=== PATIENT | female | born 1980 | race Caucasian/White ===

== ENCOUNTER 2020-07-19 08:27 | Inpatient (IN) ==
[2020-07-19] MEDS ORDERED: Azithromycin 500 MG in 0.9 % Sodium Chloride 250 ML IVPB ONE (09:03)
[2020-07-19] MEDS ORDERED: Naloxone 0.4 MG/ML INJ IVP PRN (09:03)
[2020-07-19] MEDS ORDERED: CeFAZolin 2,000 MG/50 ML BAG IVPB ONE (09:03)
[2020-07-19] MEDS ORDERED: Metoclopramide 10 MG/2 ML VIAL IVP PRN ×2 (09:03→13:47)
[2020-07-19] MEDS ORDERED: Famotidine 20 MG/2 ML VIAL IVP PRN (09:03)
[2020-07-19] MEDS ORDERED: EPHEDrine 50 MG/ML VIAL ONE (09:14)
[2020-07-19] MEDS ORDERED: *HR* Morphine Sulfate/PF 10 MG/10 ML AMPUL ONE (09:14)
[2020-07-19] MEDS ORDERED: *HR* FentaNYL (PF) 100 MCG/2 ML VIAL ONE (09:15)
[2020-07-19] MEDS ORDERED: Ringers Solution, Lactated 1,000 ML IVC SCH (09:15)
[2020-07-19] MEDS ORDERED: *HR* Midazolam HCl 2 MG/2 ML VIAL ONE (09:16)
[2020-07-19] MEDS ORDERED: Ondansetron 4 MG/2 ML VIAL ONE (09:16)
[2020-07-19] MEDS ORDERED: Dexamethasone 4 MG/ML VIAL ONE (09:16)
[2020-07-19] MEDS ORDERED: *HR* Oxytocin 10 UNIT/ML VIAL IM ONE (09:17)
[2020-07-19] MEDS ORDERED: Ringers Solution, Lactated 1,000 ML ONE (09:17)
[2020-07-19 09:42] LABS: Basophils % 0.2 %; Eosinophils % 0.1 %; Hematocrit 37.1 % (35.3-44.9); Hemoglobin 12.2 g/dL (11.5-15.4); Immature Granulocytes % 0.5 % (0-4); Lymphocytes # 1.2 K/mcL (0.6-4.6); Lymphocytes % 6.1 %; Mean Corpuscular HGB Conc 32.9 g/dL (31.6-35.5); Mean Corpuscular Hemoglobin 29.3 pg (28.0-33.3); Mean Platelet Volume 11.3 fL (9.4-12.4); Monocytes # 0.6 K/mcL (0.0-1.3); Monocytes % 3.1 %; Neutrophils # 17.2 K/mcL (1.6-8.9); Platelet Count 305 K/mcL (140-400); Red Blood Count 4.17 M/mcL (3.82-4.97); Red Cell Distribution Width 13.7 % (11.5-14.5); White Blood Count 19.1 K/mcL (4.3-11.1)
[2020-07-19] MEDS ORDERED: *HR* Succinylcholine 200 MG/10 ML VIAL IVP ONE (10:07)
[2020-07-19] MEDS ORDERED: *HR* FentaNYL (PF) 250 MCG/5 ML VIAL ONE (10:22)
[2020-07-19] MEDS ORDERED: Ketamine *HR* 500 MG/10 ML MDV ONE (10:25)
[2020-07-19 10:33] LABS: Rubella IgG Antibody POSITIVE (POSITIVE); Varicella Zoster IgG Antibody Positive
[2020-07-19] MEDS ORDERED: Ketorolac 30 MG/ML VIAL ONE (10:41)
[2020-07-19 11:09] LABS: Alanine Aminotransferase 20 Units/L (7-52); Aspartate Amino Transferase 20 Units/L (13-39); BUN/Creatinine Ratio 11 (6-26); Blood Urea Nitrogen 7 mg/dL (6-20); Lactate Dehydrogenase 213 Units/L (140-271); Uric Acid 5.3 mg/dL (2.3-7.6); eGFR For African Americans > 60 (> 60); eGFR For Non-African Americans > 60 (> 60)
[2020-07-19 11:10] LABS: Influenza A PCR Negative (Negative); Influenza B PCR Negative (Negative); Resp. Syncytial Virus PCR Negative (Negative)
[2020-07-19 11:15] LABS: SARS-CoV-2 by PCR (In House) Negative (Negative)
[2020-07-19 11:45] LABS: Creatinine,Urine 124 mg/dL; Protein/Creatinine Ratio,Urine 0.18 mg/mg (0.00-0.20)
[2020-07-19 11:49] LABS: Amphetamine Screen,Urine Positive ng/mL (Cutoff=1000); Barbiturate Screen,Urine Negative ng/mL (Cutoff=200); Benzodiazepines Screen,Urine Negative ng/mL (Cutoff=200); Cannabinoid Screen,Urine Negative ng/mL (Cutoff = 50); Cocaine Screen,Urine Negative ng/mL (Cutoff= 300); Opiate Screen,Urine Negative ng/mL (Cutoff=300); Phencyclidine Screen,Urine Negative ng/mL (Cutoff=25)
[2020-07-19 12:24] LABS: Hepatitis B Surface Antigen Nonreactive (Nonreactive)
[2020-07-19 12:52] LABS: HIV-1&2 Antibody & p24 Ag Nonreactive (Nonreactive)
[2020-07-19] MEDS ORDERED: Measles/Mumps/Rubella Vacc 0.5 ML VIAL SQ ONE (13:47)
[2020-07-19] MEDS ORDERED: Ondansetron 4 MG/2 ML VIAL IVP PRN (13:47)
[2020-07-19] MEDS ORDERED: Oxytocin 20 units/ LR 1000 mL 20 UNIT/1,000 ML BAG IVC SCH (13:47)
[2020-07-19] MEDS ORDERED: Simethicone 80 MG TAB.CHEW PO PRN (13:47)
[2020-07-19] MEDS: cephALEXin 500 MG CAPSULE PO SCH ×2 (16:30→20:39)
[2020-07-19] MEDS: Acetaminophen 325 MG TABLET PO SCH ×2 (16:30→23:12)
[2020-07-19] MEDS: Ibuprofen 600 MG TABLET PO SCH ×2 (16:30→23:12)
[2020-07-19] MEDS: Nicotine 21 MG PATCH.TD24 TD SCH (16:30)
[2020-07-19] MEDS: metroNIDAZOLE 500 MG TABLET PO SCH ×2 (16:31→20:39)
[2020-07-19] MEDS: Melatonin 3 MG TABLET PO SCH (23:43)
[2020-07-20 04:53] LABS: Basophils % 0.2 %; Eosinophils # 0.1 K/mcL (0.0-0.6); Eosinophils % 0.4 %; Hematocrit 31.2 % (35.3-44.9); Immature Granulocytes % 0.5 % (0-4); Lymphocytes # 2.5 K/mcL (0.6-4.6); Lymphocytes % 17.3 %; Mean Corpuscular HGB Conc 32.7 g/dL (31.6-35.5); Mean Corpuscular Hemoglobin 29.1 pg (28.0-33.3); Mean Corpuscular Volume 88.9 fL (83.0-100.0); Mean Platelet Volume 11.7 fL (9.4-12.4); Monocytes # 0.8 K/mcL (0.0-1.3); Monocytes % 5.7 %; Neutrophils # 10.9 K/mcL (1.6-8.9); Platelet Count 277 K/mcL (140-400); Red Blood Count 3.51 M/mcL (3.82-4.97); Red Cell Distribution Width 13.6 % (11.5-14.5); Segmented Neutrophils % 75.9 %; White Blood Count 14.3 K/mcL (4.3-11.1)
[2020-07-20 04:55] LABS: Hemoglobin 10.2 g/dL (11.5-15.4)
[2020-07-20] MEDS: *HR* OxyCODONE Immed Rel 5 MG TABLET PO PRN ×4 (05:14→20:29)
[2020-07-20] MEDS: Ibuprofen 600 MG TABLET PO SCH ×4 (06:38→23:33)
[2020-07-20] MEDS: Acetaminophen 325 MG TABLET PO SCH ×4 (06:38→23:34)
[2020-07-20] MEDS: Nicotine 21 MG PATCH.TD24 TD SCH (08:59)
[2020-07-20] MEDS: cephALEXin 500 MG CAPSULE PO SCH ×3 (09:00→20:29)
[2020-07-20] MEDS: Prenatal Vit/FA 1 EACH TABLET PO SCH (09:00)
[2020-07-20] MEDS: metroNIDAZOLE 500 MG TABLET PO SCH ×3 (09:00→20:30)
[2020-07-20] MEDS: Melatonin 3 MG TABLET PO SCH (20:30)
[2020-07-21] MEDS: *HR* OxyCODONE Immed Rel 5 MG TABLET PO PRN ×4 (03:22→21:22)
[2020-07-21] MEDS: Ibuprofen 600 MG TABLET PO SCH ×3 (06:24→18:22)
[2020-07-21] MEDS: Acetaminophen 325 MG TABLET PO SCH ×3 (06:24→18:21)
[2020-07-21] MEDS: cephALEXin 500 MG CAPSULE PO SCH (09:27)
[2020-07-21] MEDS: metroNIDAZOLE 500 MG TABLET PO SCH (09:28)
[2020-07-21] MEDS: Nicotine 21 MG PATCH.TD24 TD SCH (09:28)
[2020-07-21] MEDS: Prenatal Vit/FA 1 EACH TABLET PO SCH (09:28)
[2020-07-21] MEDS ORDERED: Etonogestrel 68 MG IMPLANT IL ONE (09:47)
[2020-07-21] MEDS ORDERED: Lidocaine 1% 20 ML MDV ID ONE (09:47)
[2020-07-21] MEDS: Melatonin 3 MG TABLET PO SCH (21:22)
[2020-07-22] MEDS: Acetaminophen 325 MG TABLET PO SCH ×2 (00:17→05:56)
[2020-07-22] MEDS: Ibuprofen 600 MG TABLET PO SCH ×2 (00:17→05:56)
[2020-07-22] MEDS: Nicotine 21 MG PATCH.TD24 TD SCH (09:26)
[2020-07-22 09:28] LABS: Basophils % 0.3 %; Eosinophils # 0.4 K/mcL (0.0-0.6); Eosinophils % 4.1 %; Hematocrit 31.9 % (35.3-44.9); Hemoglobin 10.3 g/dL (11.5-15.4); Immature Granulocytes % 0.7 % (0-4); Lymphocytes # 2.2 K/mcL (0.6-4.6); Lymphocytes % 22.2 %; Mean Corpuscular HGB Conc 32.3 g/dL (31.6-35.5); Mean Corpuscular Hemoglobin 29.8 pg (28.0-33.3); Mean Corpuscular Volume 92.2 fL (83.0-100.0); Mean Platelet Volume 11.6 fL (9.4-12.4); Monocytes # 0.5 K/mcL (0.0-1.3); Monocytes % 5.1 %; Neutrophils # 6.7 K/mcL (1.6-8.9); Platelet Count 286 K/mcL (140-400); Red Blood Count 3.46 M/mcL (3.82-4.97); Red Cell Distribution Width 14.1 % (11.5-14.5); Segmented Neutrophils % 67.6 %; White Blood Count 9.9 K/mcL (4.3-11.1)
[2020-07-22] MEDS: Prenatal Vit/FA 1 EACH TABLET PO SCH (09:28)
[2020-07-22] MEDS: *HR* OxyCODONE Immed Rel 5 MG TABLET PO PRN (09:28)
[2020-07-22 09:48] LABS: Alanine Aminotransferase 12 Units/L (7-52); Aspartate Amino Transferase 14 Units/L (13-39); BUN/Creatinine Ratio 17 (6-26); Blood Urea Nitrogen 10 mg/dL (6-20); Lactate Dehydrogenase 137 Units/L (140-271); Uric Acid 4.3 mg/dL (2.3-7.6); eGFR For African Americans > 60 (> 60); eGFR For Non-African Americans > 60 (> 60)
[2020-07-22 10:55] VITALS: BP 137/78
[2020-07-22] MEDS ORDERED: NIFEdipine XL (24 HR) 30 MG TAB.ER.24 PO SCH (11:00)
== END 2020-07-22 13:25 | disposition home or self-care (01) | DRG 540 ==
LOC: 1NENULAB 08:27 → 1NENUOBS 13:23
PROVIDERS: ADMIT Obstetrics & Gynecology; ATTEND Obstetrics & Gynecology